=== PATIENT | female | born 1975 ===

== ENCOUNTER 2016-11-13 09:19 | Emergency (ER) | payer OTHER ==
[2016-11-13 09:25] VITALS: BMI 30.9
[2016-11-13 09:29] VITALS: O2SAT 98
[2016-11-13] MEDS ORDERED: Sodium Chloride 0.9% 500 ML IV ONE (09:58)
[2016-11-13 10:36] LABS: BASO % 0.5 % (0.0-2.0); HEMATOCRIT 41.9 % (34.0-47.0); LYMPH # 2.8 K/uL (1.0-4.3); LYMPH % 31.4 % (20.0-40.0); MEAN CELL VOLUME 89.2 fl (81.0-99.0); MEAN CORPUSCULAR HEMOGLOBIN 29.5 pg (27.0-31.0); MEAN CORPUSCULAR HGB CONC 33.1 g/dL (33.0-37.0); MEAN PLATELET VOLUME 8.8 fl (7.2-11.7); MONO # 0.4 K/uL (0.0-0.8); MONO % 4.2 % (0.0-10.0); NEUT # 4.8 K/uL (1.8-7.0); NEUT % 52.9 % (50.0-75.0); RED CELL DISTRIBUTION WIDTH 13.7 % (11.5-14.5)
--- NOTE | 2016-11-13 10:36 | ED PDOC ---
HPI: Abdomen Time Seen by Provider: 11/13/16 09:41 Chief Complaint (Nursing): Abdominal Pain Chief Complaint (Provider): Abdominal Pain History Per: Patient History/Exam Limitations: no limitations Onset/Duration Of Symptoms: Hrs (since waking up) Current Symptoms Are (Timing): Still Present Additional Complaint(s): 41 y/o F who states she woke up with epigastric pain and nausea, and vomited once. She describes the epigastric pain as burning. Denies any radiation of pain , chest pain, shortness of breath, dysuria vaginal bleeding or discharge, diarrhea, or constipation. PMD: None Past Medical History Reviewed: Historical Data, Nursing Documentation, Vital Signs Vital Signs: Last Vital Signs Temp 97.6 F 11/13/16 13:44 Pulse 78 11/13/16 13:44 Resp 19 11/13/16 13:44 BP 126/78 11/13/16 13:44 Pulse Ox 98 11/13/16 13:44 - Medical History PMH: No Chronic Diseases - Surgical History Surgical History: No Surg Hx - Family History Family History: States: Unknown Family Hx - Social History Current smoker - smoking cessation education provided: No Alcohol: None Drugs: Denies - Allergies Allergies/Adverse Reactions: Allergies Allergy/AdvReac Type Severity Reaction Status Date / Time No Known Allergies Allergy Verified 11/13/16 09:57 Review of Systems ROS Statement: Except As Marked, All Systems Reviewed And Found Negative Constitutional: Negative for: Fever, Chills Cardiovascular: Negative for: Chest Pain Respiratory: Negative for: Shortness of Breath Gastrointestinal: Positive for: Nausea, Vomiting, Abdominal Pain. Negative for : Diarrhea, Constipation Genitourinary Female: Negative for: Dysuria, Vaginal Discharge, Vaginal Bleeding Physical Exam - Reviewed Nursing Documentation Reviewed: Yes Vital Signs Reviewed: Yes - Physical Exam Appears: Positive for: Well, Non-toxic, No Acute Distress Head Exam: Positive for: ATRAUMATIC, NORMAL INSPECTION, NORMOCEPHALIC Skin: Positive for: Normal Color, Warm, Dry Eye Exam: Positive for: EOMI, Normal appearance, PERRL Neck: Positive for: Normal, Painless ROM, Supple Cardiovascular/Chest: Positive for: Regular Rate, Rhythm. Negative for: Murmur Respiratory: Positive for: Normal Breath Sounds. Negative for: Accessory Muscle Use, Respiratory Distress Gastrointestinal/Abdominal: Positive for: Soft, Tenderness (epigastric and RUQ tenderness on palpation) Back: Positive for: Normal Inspection Extremity: Positive for: Normal ROM. Negative for: Calf Tenderness, Deformity Neurologic/Psych: Positive for: Alert, Oriented. Negative for: Motor/Sensory Deficits - Laboratory Results Result Diagrams: 11/13/16 10:11 11/13/16 10:11 - ECG O2 Sat by Pulse Oximetry: 98 (RA) Pulse Ox Interpretation: Normal Medical Decision Making Medical Decision Making: Time: 9:58 Initial Plan: --Ordered labs --NS IV 500 mls at 500 mls/hr --Zofran 4 mg IV --Pepcid 20 mg IV --Toradol 30 mg IV --Pending US Abdomen Time: 13:16 CT Abdomen/Pelvis: FINDINGS: LIVER: Measures 15.8 cm. Diffusely increased echogenicity of the liver parenchyma. Consistent with fatty infiltration. Smooth contour. No mass. No biliary ductal dilatation. GALLBLADDER: Mildly thickened wall up to 4 mm, diffusely. This is a nonspecific finding. No evidence of cholelithiasis. No pericholecystic fluid. Negative sonographic Moncada sign. COMMON BILE DUCT: Measures 3 mm. No stones. No dilatation. PANCREAS: Unremarkable as visualized. No mass. No ductal dilatation. RIGHT KIDNEY: Measures 11.8cm. Normal echogenicity. No calculus, mass, or hydronephrosis. LEFT KIDNEY: Measures 12.9cm. Normal echogenicity. No calculus, mass, or hydronephrosis. SPLEEN: Normal in size and contour. No mass. AORTA: No aneurysmal dilatation. IVC: Unremarkable. OTHER FINDINGS: None. IMPRESSION: Fatty infiltration of the liver. Mild nonspecific diffuse thickening of the gallbladder wall without evidence of cholelithiasis. Scribe Attestation: Documented by Setphanie Valladares, acting as a scribe for Neelam Lezama MD Provider Scribe Attestation: All medical record entries made by the Scribe were at my direction and personally dictated by me. I have reviewed the chart and agree that the record accurately reflects my personal performance of the history, physical exam, medical decision making, and the department course for this patient. I have also personally directed, reviewed, and agree with the discharge instructions and disposition. Used video production assistant to explain results of U/S. Patient is aware of the need for follow-up. She denies dysuria. She denies abdominal pain and is tolerating po. Her abdomen is soft NT/ND. Disposition - Clinical Impression Clinical Impression: Abdominal pain - Disposition Disposition: Routine/Home Disposition Time: 13:38 Condition: GOOD Additional Instructions: Follow-up with PMD within 2 days. Return to ED if condition worsens. Instructions: Acute Abdominal Pain (ED), Non-Alcoholic Fatty Liver Disease (ED) Forms: [facility] [employer] (Latvian) Print Language: ITALIAN
[2016-11-13 10:40] LABS: RBC URINE 5 /hpf (0-3); URINE BACTERIA RARE (<OCC); URINE BILIRUBIN NEGATIVE (NEGATIVE); URINE BLOOD SMALL (NEGATIVE); URINE COLOR AMBER (YELLOW); URINE GLUCOSE (UA) NEG (Normal); URINE KETONE TRACE mg/dL (NEGATIVE); URINE LEUKOCYTE ESTERASE SMALL Leu/uL (Negative); URINE PROTEIN 30 mg/dL (NEGATIVE); URINE UROBILINOGEN 0.2-1.0 mg/dL (0.2-1.0); WBC URINE 4 /hpf (0-5)
[2016-11-13 10:46] LABS: ALB/GLOB RATIO 1.3 (1.0-2.1); ALKALINE PHOSPHATASE 86 U/L (38-126); ALT/SGPT 96 U/L (9-52); AST/SGOT 73 U/L (14-36); BILIRUBIN,TOTAL 0.6 mg/dl (0.2-1.3); BLOOD UREA NITROGEN 19 mg/dl (7-17); CALCIUM 8.7 mg/dL (8.4-10.2); CARBON DIOXIDE 24 mmol/L (22-30); CHLORIDE 105 mmol/L (98-107); GFR AFRICAN-AMERICAN > 60; GLUCOSE,RANDOM 137 mg/dL (65-105); LIPASE 58 U/L (23-300); PHOSPHOROUS 3.1 mg/dl (2.5-4.5); POTASSIUM 3.6 MMOL/L (3.6-5.0); SODIUM 139 mmol/l (132-148); TOTAL PROTEIN 7.5 G/DL (6.3-8.2)
--- NOTE | 2016-11-13 13:18 | US ---
HISTORY: RUQ pain COMPARISON: None. TECHNIQUE: Sonographic evaluation of the abdomen. FINDINGS: LIVER: Measures 15.8 cm. Diffusely increased echogenicity of the liver parenchyma. Consistent with fatty infiltration. Smooth contour. No mass. No biliary ductal dilatation. GALLBLADDER: Mildly thickened wall up to 4 mm, diffusely. This is a nonspecific finding. No evidence of cholelithiasis. No pericholecystic fluid. Negative sonographic Moncada sign. COMMON BILE DUCT: Measures 3 mm. No stones. No dilatation. PANCREAS: Unremarkable as visualized. No mass. No ductal dilatation. RIGHT KIDNEY: Measures 11.8cm. Normal echogenicity. No calculus, mass, or hydronephrosis. LEFT KIDNEY: Measures 12.9cm. Normal echogenicity. No calculus, mass, or hydronephrosis. SPLEEN: Normal in size and contour. No mass. AORTA: No aneurysmal dilatation. IVC: Unremarkable. OTHER FINDINGS: None. IMPRESSION: Fatty infiltration of the liver. Mild nonspecific diffuse thickening of the gallbladder wall without evidence of cholelithiasis.
[2016-11-13 13:46] VITALS: BP 126/78; PULSE 78; RESP 19; TEMP 97.6
== END 2016-11-13 13:46 | disposition home or self-care (01) ==
LOC: H.ER 09:19
DX: R10.13 Epigastric pain (principal); K76.0 Fatty (change of) liver, not elsewhere classified
CPT/HCPCS: 76700; 80053; 81003; 81025; 83690; 83735; 84100; 85025; 96374; 96375; 99282; J1885; J2405; J7040

== ENCOUNTER 2017-05-14 16:47 | Emergency (ER) | payer OTHER ==
[2017-05-14 16:47] VITALS: BMI 30.9
[2017-05-14 17:04] VITALS: BP 101/63; PULSE 64; RESP 16; TEMP 98.5; O2SAT 100
[2017-05-14] MEDS ORDERED: Naproxen 500 MG TAB PO STA (18:17)
[2017-05-14] MEDS ORDERED: Naproxen 500 MG TAB PO ONE (18:23)
--- NOTE | 2017-05-14 18:50 | ED PDOC ---
HPI: Headache Time Seen by Provider: 05/14/17 17:12 Chief Complaint (Nursing): Headache Chief Complaint (Provider): Headache History Per: Patient History/Exam Limitations: no limitations Onset/Duration Of Symptoms: Days Current Symptoms Are (Timing): Still Present Additional Complaint(s): 41yo female, with history of anxiety, presents to the ED with complaints of a headache and difficulty sleeping. She states she has been fighting with her daughter and recently with her as well. She states she has had similar episodes of difficulty sleeping in the past. She has not taken any medication for her symptom and is requesting something for the headache as well as the anxiety. ). Otherwise: (-) thunderclap headache, (-) worse headache of life, (-) nausea, (-) vomiting, (-) photophobia, (-) phonophobia, (-) URI symptoms, (-) fever, (-) trauma, (-) subjective neurologic symptoms, (-) hallucinations, (-) suicidal ideation, (-) homicidal ideation. Past Medical History Reviewed: Historical Data, Nursing Documentation, Vital Signs Vital Signs: Last Vital Signs Temp 98.5 F 05/14/17 16:59 Pulse 64 05/14/17 16:59 Resp 16 05/14/17 16:59 BP 101/63 05/14/17 16:59 Pulse Ox 100 05/14/17 16:59 - Medical History PMH: Anxiety - Surgical History Surgical History: No Surg Hx - Family History Family History: States: Unknown Family Hx - Home Medications Home Medications: Ambulatory Orders Medication Instructions Recorded ALPRAZolam [Xanax] 0.25 mg PO TID PRN #9 tab 05/14/17 Metoclopramide HCl [Reglan] 10 mg PO QID PRN #20 tablet 05/14/17 Naproxen 500 mg PO BID PRN #20 tablet 05/14/17 - Allergies Allergies/Adverse Reactions: Allergies Allergy/AdvReac Type Severity Reaction Status Date / Time No Known Allergies Allergy Verified 05/14/17 16:59 Review of Systems ROS Statement: Except As Marked, All Systems Reviewed And Found Negative Constitutional: Negative for: Fever, Chills Eyes: Negative for: Vision Change Gastrointestinal: Negative for: Vomiting Neurological: Positive for: Headache Psych: Negative for: Suicidal ideation, Other (homicidal ideation) Physical Exam - Reviewed Nursing Documentation Reviewed: Yes Vital Signs Reviewed: Yes - Physical Exam Comments: SKIN: Warm, dry; (-) cyanosis. HEAD: (-) scalp swelling, (-) scalp tenderness. EYES: (-) conjunctival pallor, (-) scleral icterus, (-) nystagmus. ENMT: Mucous membranes moist. Airway patent: (-) stridor. NECK: (-) tenderness, (-) stiffness, (-) lymphadenopathy. CHEST AND RESPIRATORY: (-) rales, (-) rhonchi, (-) wheezes; breath sounds equal. ABDOMEN: Soft, (-) distention, (-) tenderness, (-) guarding. NEURO AND PSYCH: Mental status as above. Affect: Normal. Memory: Intact. date night caregiver: Pupils equal and reactive; EOMI; (-) facial asymmetry; tongue and uvula midline. Strength and DTRs symmetric. - ECG O2 Sat by Pulse Oximetry: 100 (RA) Pulse Ox Interpretation: Normal Medical Decision Making Medical Decision Making: Impression: Headache, anxiety Plan: -- Reglan 10 mg PO -- Naproxen 500 mg PO On re-evaluation, patient reports significant improvement of her headache. On exam, patient remains AAOx3, in no acute distress, repeat neuro exam shows no acute focal findings. Patient encouraged to follow up with PMD and clinic for further evaluation of symptoms. Informed to take Xanax as needed for her anxiety. Return to the emergency room at any time for any new or worsening symptoms. Patient states she fully agrees with and understands discharge instructions. States that she agrees with the plan and disposition. Verbalized and repeated discharge instructions and plan. I have given the patient opportunity to ask any additional questions. Scribe Attestation: Documented by Abiola Becerra acting as a scribe for Mariaelena Castellon PA-C. Provider Attestation: All medical record entries made by the Scribe were at my direction and personally dictated by me. I have reviewed the chart and agree that the record accurately reflects my personal performance of the history, physical exam, medical decision making, and the department course for this patient. I have also personally directed, reviewed, and agree with the discharge instructions and disposition. Disposition - Clinical Impression Clinical Impression: Headache, Anxiety - Patient ED Disposition Is Patient to be Admitted: No Counseled Patient/Family Regarding: Diagnosis, Need For Followup, Rx Given - Disposition Referrals: [facility] [Outside] Disposition: Routine/Home Disposition Time: 18:20 Condition: IMPROVED Additional Instructions: Thank you for letting us take care of you today. You were treated for headache, anxiety. The emergency medical care you received today was directed at your acute symptoms. If you were prescribed any medication, please fill it and take as directed. It may take several days for your symptoms to resolve. Return to the Emergency Department if your symptoms worsen, do not improve, or if you have any other problems. Please contact your doctor in 2 days for re-evaluation and follow up / or call one of the physicians/clinics you have been referred to that are listed on the Patient Visit Information form that is included in your discharge packet. Bring any paperwork you were given at discharge with you along with any medications you are taking to your follow up visit. Our treatment cannot replace ongoing medical care by a primary care provider (PCP) outside of the emergency department. Thank you for allowing the [facility] team to be part of your care today. If you had an X-Ray or CT scan: A Radiologist will review the ED reading if any change in treatment is needed we will contact you. Prescriptions: ALPRAZolam [Xanax] 0.25 mg PO TID PRN #9 tab PRN Reason: Anxiety Metoclopramide HCl [Reglan] 10 mg PO QID PRN #20 tablet PRN Reason: Headache Naproxen 500 mg PO BID PRN #20 tablet PRN Reason: Pain, Moderate (4-7) Instructions: Headache, Adult, Anxiety, Adult (DC) Forms: [employer] (French), [facility] ED School/Work Excuse Print Language: BELARUSIAN - PA / [employer]SEM[employer]ER / Resident Statement MD/DO has reviewed & agrees with the documentation as recorded.
== END 2017-05-14 19:45 | disposition home or self-care (01) ==
LOC: H.ER 16:47
DX: R51 Headache (principal); F41.9 Anxiety disorder, unspecified

== ENCOUNTER 2017-12-07 09:06 | Emergency (ER) | payer SELFPAY ==
[2017-12-07 09:07] VITALS: BMI 30.9
[2017-12-07 09:13] VITALS: RESP 16
[2017-12-07 10:37] LABS: BASO % 0.2 % (0.0-2.0); EOS # 0.2 K/uL (0.0-0.7); EOS % 1.4 % (0.0-4.0); HEMOGLOBIN 12.5 g/dL (12.0-16.0); LYMPH # 1.3 K/uL (1.0-4.3); LYMPH % 9.9 % (20.0-40.0); MEAN CELL VOLUME 88.9 fl (81.0-99.0); MEAN CORPUSCULAR HEMOGLOBIN 29.4 pg (27.0-31.0); MEAN CORPUSCULAR HGB CONC 33.1 g/dL (33.0-37.0); MEAN PLATELET VOLUME 8.3 fl (7.2-11.7); MONO # 0.4 K/uL (0.0-0.8); MONO % 3.3 % (0.0-10.0); NEUT # 11.4 K/uL (1.8-7.0); NEUT % 85.2 % (50.0-75.0); PLATELET COUNT 220 K/uL (130-400); RBC 4.27 Mil/uL (3.80-5.20); RED CELL DISTRIBUTION WIDTH 12.8 % (11.5-14.5); WHITE BLOOD COUNT 13.4 K/uL (4.8-10.8)
[2017-12-07 10:41] LABS: SQUAMOUS EPITHIAL 13 /hpf (0-5); URINE BILIRUBIN NEGATIVE (NEGATIVE); URINE BLOOD NEGATIVE (NEGATIVE); URINE CLARITY SLIGHTY-CLOUDY (Clear); URINE COLOR YELLOW (YELLOW); URINE GLUCOSE (UA) NEG (Normal); URINE LEUKOCYTE ESTERASE NEG Leu/uL (Negative); URINE PROTEIN NEGATIVE (NEGATIVE); URINE UROBILINOGEN 0.2-1.0 mg/dL (0.2-1.0)
--- NOTE | 2017-12-07 10:54 | ED PDOC ---
HPI: Abdomen Time Seen by Provider: 12/07/17 09:39 Chief Complaint (Nursing): Abdominal Pain Chief Complaint (Provider): Abdominal Pain History Per: Patient History/Exam Limitations: no limitations Onset/Duration Of Symptoms: Days (1) Location Of Pain/Discomfort: Suprapubic Associated Symptoms: Diarrhea. denies: Fever, Nausea, Vomiting, Urinary Symptoms Additional Complaint(s): 42 years old female presents to ER for evaluation of abdominal pain associated with diarrhea onset 1 day. Patient is 9 weeks with . She denies any nausea, vomiting or fever. PMD: non provided : 4 Para: 3 Past Medical History Reviewed: Historical Data, Nursing Documentation, Vital Signs Vital Signs: Last Vital Signs Temp 98.6 F 12/07/17 09:13 Pulse 56 L 12/07/17 09:13 Resp 16 12/07/17 09:13 BP 112/71 12/07/17 09:13 Pulse Ox 100 12/07/17 09:13 - Medical History PMH: Anxiety - Surgical History Surgical History: No Surg Hx - Family History Family History: States: Unknown Family Hx - Social History Current smoker - smoking cessation education provided: No Alcohol: Social Drugs: Denies - Immunization History Hx Tetanus Toxoid Vaccination: No Hx Influenza Vaccination: No Hx Pneumococcal Vaccination: No - Home Medications Home Medications: Ambulatory Orders Medication Instructions Recorded Valacyclovir HCl [Valtrex] 1 gm PO Q8H #21 tablet 09/30/17 Acetaminophen [Tylenol 325mg tab] 2 tab PO Q4H PRN #20 tab 12/07/17 - Allergies Allergies/Adverse Reactions: Allergies Allergy/AdvReac Type Severity Reaction Status Date / Time No Known Allergies Allergy Verified 09/29/17 21:57 Review of Systems ROS Statement: Except As Marked, All Systems Reviewed And Found Negative Constitutional: Negative for: Fever Gastrointestinal: Positive for: Abdominal Pain, Diarrhea. Negative for: Nausea, Vomiting Genitourinary Female: Negative for: Dysuria, Hematuria Physical Exam - Reviewed Nursing Documentation Reviewed: Yes Vital Signs Reviewed: Yes - Physical Exam Appears: Positive for: Non-toxic, No Acute Distress Head Exam: Positive for: ATRAUMATIC, NORMOCEPHALIC Gastrointestinal/Abdominal: Positive for: Tenderness (Suprapubic). Negative for: Guarding, Rebound Extremity: Positive for: Normal ROM. Negative for: Pedal Edema, Swelling Neurologic/Psych: Positive for: Alert, Oriented (x3) - Laboratory Results Result Diagrams: 12/07/17 10:20 12/07/17 10:20 - ECG O2 Sat by Pulse Oximetry: 100 (RA) Pulse Ox Interpretation: Normal Medical Decision Making Medical Decision Making: Time: 1007 Initial Impression: Abdominal pain in . Initial Plan: --CMP --Urine dipstick --CBC --Urinalysis --OB US 1450 OB US FINDINGS: Breech presentation. Anterior placenta. No evidence of abruption or previa Gestational age derived from LMP Cannot be ascertained based in the absence of a reliable/ known LMP. Gestational age derived from the following biometric parameters 14 weeks 4 days. EMILIANO 06/03/2018 Biparietal diameter 2.60 cm Head circumference 9.94 cm Abdominal circumference 8.30 cm Femur length 1.43 cm Estimated weight 98.1 g Calculated cardiac rate 146 beats per min. Closed cervix. IMPRESSION: Fourteen weeks 4 days live intrauterine gestation. Adequate interval progression compared to the previous study. Scribe Attestation: Documented by Joan Leonard, acting as a scribe for Eva Faulkner MD. Provider Scribe Attestation: All medical record entries made by the Scribe were at my direction and personally dictated by me. I have reviewed the chart and agree that the record accurately reflects my personal performance of the history, physical exam, medical decision making, and the department course for this patient. I have also personally directed, reviewed, and agree with the discharge instructions and disposition. Disposition - Clinical Impression Clinical Impression: Abdominal pain during - Disposition Disposition: Routine/Home Disposition Time: 16:08 Condition: STABLE Additional Instructions: FOLLOW-UP WITH OB-PA[facility] SURFACING LABOURER WITHIN 2 DAYS FOR REEVALUATION. Prescriptions: Acetaminophen [Tylenol 325mg tab] 2 tab PO Q4H PRN #20 tab PRN Reason: Fever >100.4 F Instructions: Acute Abdomen (Belly Pain), Symptoms, - The Fourth Month Forms: [employer] (Estonian) Print Language: PERSIAN
[2017-12-07 11:00] LABS: ALBUMIN 3.4 g/dL (3.5-5.0); ALT/SGPT 17 U/L (9-52); AST/SGOT 19 U/L (14-36); BLOOD UREA NITROGEN 11 mg/dl (7-17); CALCIUM 8.2 mg/dL (8.4-10.2); GFR NON-AFRICAN AMERICAN > 60
[2017-12-07 11:31] LABS: BANDS 2 % (0-2); EOSINOPHIL 2 % (0-7); LYMPHOCYTE 8 % (20-50); MONOCYTE 3 % (0-10); NEUTROPHIL 85 % (42-75); TOTAL CELLS COUNTED 100
[2017-12-07 11:34] LABS: PLATELET ESTIMATE NORMAL (NORMAL)
--- NOTE | 2017-12-07 14:52 | US ---
Date of service: 12/07/2017 PROCEDURE: Limited ultrasound HISTORY: Abd pain COMPARISON: 11/23/2017 TECHNIQUE: Standard protocol for this study/examination. FINDINGS: Breech presentation. Anterior placenta. No evidence of abruption or previa Gestational age derived from LMP Cannot be ascertained based in the absence of a reliable/ known LMP. Gestational age derived from the following biometric parameters 14 weeks 4 days. EMILIANO 06/03/2018 Biparietal diameter 2.60 cm Head circumference 9.94 cm Abdominal circumference 8.30 cm Femur length 1.43 cm Estimated weight 98.1 g Calculated cardiac rate 146 beats per min. Closed cervix. IMPRESSION: Fourteen weeks 4 days live intrauterine gestation. Adequate interval progression compared to the previous study.
[2017-12-07 16:37] VITALS: BP 130/66; PULSE 74; TEMP 98.3
[2017-12-17 16:02] VITALS: O2SAT 100
== END 2017-12-07 16:30 | disposition home or self-care (01) ==
LOC: H.ER 09:06
DX: O26.91 Pregnancy related conditions, unspecified, first trimester (principal); R10.2 Pelvic and perineal pain; O32.1XX0 Maternal care for breech presentation, not applicable or unspecified; Z3A.09 9 weeks gestation of pregnancy

== ENCOUNTER 2018-05-28 19:55 | Inpatient (IN) | payer MEDICAID, SELFPAY ==
[2018-05-28 20:16] VITALS: BMI 31.3
[2018-05-28] MEDS ORDERED: OXYTOCIN/0.9 % NS 20 UNIT/1,000 ML BAG IV SCH (21:30)
[2018-05-28] MEDS ORDERED: Oxytocin 30 UNIT in NS 500 ml 30 UNITS/500 ML BAG IV ONE (21:45)
[2018-05-28 21:56] LABS: BASO % 0.6 % (0.0-2.0); EOS # 0.7 K/uL (0.0-0.7); EOS % 8.4 % (0.0-4.0); HEMOGLOBIN 9.9 g/dL (12.0-16.0); LYMPH # 2.2 K/uL (1.0-4.3); LYMPH % 25.2 % (20.0-40.0); MEAN CELL VOLUME 79.7 fl (81.0-99.0); MEAN CORPUSCULAR HEMOGLOBIN 26.5 pg (27.0-31.0); MEAN CORPUSCULAR HGB CONC 33.2 g/dL (33.0-37.0); MEAN PLATELET VOLUME 9.2 fl (7.2-11.7); MONO # 0.5 K/uL (0.0-0.8); MONO % 6.1 % (0.0-10.0); NEUT # 5.1 K/uL (1.8-7.0); NEUT % 59.7 % (50.0-75.0); RBC 3.73 Mil/uL (3.80-5.20); RED CELL DISTRIBUTION WIDTH 13.4 % (11.5-14.5); WHITE BLOOD COUNT 8.6 K/uL (4.8-10.8)
[2018-05-28 22:05] LABS: BLOOD UREA NITROGEN 13 mg/dl (7-17); CALCIUM 8.5 mg/dL (8.4-10.2); GFR NON-AFRICAN AMERICAN > 60
--- NOTE | 2018-05-29 07:06 | OBADHP ---
Datetime: 05/28/2018 21:54 Admit Comment, IP Provider: Jc: [id number] Pt is a 42 yo AMA F 39.1wks EMILIANO 06/04/18, LMP unknown, 14.4wk U/S done 12/07/17. Pt presented to [facility] due to induction of labor due to AMA and Gest DM- diet controlled. Denies contractions, vagi nal bleeding or LOF. Repors good movements. Denies fever, chills, blurry vision, headaches, SOB , chest pain, nausea, vomiting diarrhea constipation, or dysuria. All other systems reviewed and are negative unless otherwise mentioned in HPI PNP: [facility]- Dr. Beckham OBGYNhx: Gest DM- Diet controlled, no complicatons, Denies hx of STD's. Last pap 3 yrs ago report ed normal (hx of ab pap 10 yrs ago) hx of post depression and LGA baby 3 (2000,2009,1997) 2 SAB (2004, 2016) PMHx: Chronic H/A, Vitamin D def Meds: No meds- last PNV took 2 mo ago Allergies:NKDA Surg Hx: D _ C 2016 FHx: Mom and Grandma- Diabetes, Little sister congenital heart dz, Grandpa- red heart defect SocHx: Denies tobacco, EtOH or drug use Labs: ABO: B+, Antibody neg, GC/Chl neg, GBS neg, HIV neg, RPR nonreactive, Quant neg 03/29/18, TDA P 03/29/18 VS: WNL PE: Gen: NAD Heent: NCAT, EOMI Cardio: +S1S2, RRR Lungs: CTA B/L, no wheezes, rales or rhonchi Abd: soft, nontender, gravid, + BS heard throughout Ext: no edema Bimanual: 1cm/50%/-2 Bedside U/S- vertex Assessment:Pt is a 42 yo AMA F 39.1wks EMILIANO 4/5/19, LMP unknown, 14.4wk U/S done 12/07/17. P t presented to [facility] due to induction of labor due to AMA and Gest DM Plan: Admit to L _ D Monitor maternal VS WNL Monitor HR 150's, moderate variability, 15x15 accels Cytotec 25mg once, then 50mg Q4h Pitocin, BMP Regular diet Case reviewed and discussed with Dr. Zaid Hernandes PGY[facility]call. I saw and examined this pt. Agree with note ...will start Cytotec MAHNDO Extremities - PN: Normal Abdomen - PN: Normal Lungs - PN: Normal Heart - PN: Normal HEENT - PN: Normal General - PN: Normal FHR - Baseline A Provider: 150's Membranes, Provider: Intact Contraction Comments Provider: Q9-10mins Comments, ACOG Physical Exam: Gen: NAD Heent: NCAT, EOMI Cardio: +S1S2, RRR Lungs: CTA B/L, no wheezes, rales or rhonchi Abd: soft, nontender, gravid, + BS heard throughout Ext: no edema, calves nontender Bimanual: 1cm/50%/-2 FH monitoring 150's, moderate variability, 15x15 accel Bedside U/S- vertex Pool Provider: Negative IP Hx Assessment: The History has been Reviewed and is Current Vital Signs Provider: Reviewed; Within Normal Limits IP Chief Complaint: Scheduled induction of labor NICHD Variability Prov Fetus A: Moderate 6-25bpm NICHD Accel Fetus A IP Provider: 15X15 FHR Category Provider Fetus A: Category I NICHD Decel Fetus A IP Provider: None Dilatation, Provider: 1 Effacement, Provider: 50 Station, Provider: -2 IP Adm Impression: Term, intrauterine ; No Active Labor; Intact Membranes IP Admit Plan: Admit to unit; Initiate labor induction protocol
--- NOTE | 2018-05-29 08:49 | OBPN ---
Datetime: 05/29/2018 08:32 IP Progress Impression: Reassuring heart rate IP Progress Plan: Continue present management; Cervical Ripening; Anticipate Vaginal Delivery IP Progress Note Comment: Continue IOL for 39w AMA GDMA1 FHR Category Provider Fetus A: Category I Datetime: 05/28/2018 21:54 Pool Provider: Negative Membranes, Provider: Intact Contraction Comments Provider: Q9-10mins FHR - Baseline A Provider: 150's Vital Signs Provider: Reviewed; Within Normal Limits NICHD Accel Fetus A IP Provider: 15X15 NICHD Variability Prov Fetus A: Moderate 6-25bpm Dilatation, Provider: 1 Effacement, Provider: 50 Station, Provider: -2 NICHD Decel Fetus A IP Provider: None
[2018-05-29] MEDS ORDERED: Lactated Ringer's 1,000 ML IV ONE ×2 (16:53→16:54)
[2018-05-29] MEDS ORDERED: Oxytocin 30 UNIT in NS 500 ml 30 UNITS/500 ML BAG IV ONE (18:45)
--- NOTE | 2018-05-29 18:50 | OBPN ---
Datetime: 05/29/2018 18:30 IP Progress Impression: Normal progression of labor; Reassuring heart rate IP Progress Plan: Continue present management; Induction; Anticipate Vaginal Delivery Pool Provider: Negative Membranes, Provider: Intact Contraction Comments Provider: 2-5m FHR - Baseline A Provider: 130 Presentation-Admit: Vertex IP Progress Note Comment: She feels occ CTX but not enough for pain medications. She rec'd Cytotec dosing; at 4:30pm she was noted to be 3cm and CTX q 3m. SVE 3-4cm Discussoin with pt about labor, medicatoins, pain managment options, NPO, delivey and c are - will start Pitocin at 1miu/h Vital Signs Provider: Reviewed NICHD Accel Fetus A IP Provider: 15X15 FHR Category Provider Fetus A: Category I NICHD Variability Prov Fetus A: Moderate 6-25bpm Dilatation, Provider: 4 Effacement, Provider: 75 Station, Provider: -2 NICHD Decel Fetus A IP Provider: None
[2018-05-30] MEDS ORDERED: Lidocaine 1% Inj (20ml) ONE (03:07)
[2018-05-30] MEDS ORDERED: Benzocaine/Menthol SPRAY TOP PRN ×2 (04:37→05:31)
[2018-05-30] MEDS ORDERED: Oxycodone/Acetaminophen 5/325 mg Tab PO PRN ×2 (04:37→05:31)
--- NOTE | 2018-05-30 20:01 | OBDS ---
DELIVERY PERSONNEL Delivery Doctor: Elier Field MD Aco Coordinator: Melissa Ramesh RN MATERNAL INFORMATION Delivery Anesthesia: Local Medications in Delivery: Lidocaine 1% Estimated Blood Loss (ml): 200 Placenta Cultured: No Maternal Complications: None Provider Comments: Normal spontaneous vaginal delivery. Patient delivered viable with Apgars of 9 and 9 at 1 and 5 minutes respectively. Infant de livered via ZELDA position. Loose nuchal cord x1 reduced. Placenta delivered spontaneously. Lacerati ons were repaired, as above. Uterus firm and appropriately hemostatic following delivery. Patient t olerated delivery and repair well. No complications. Estimated blood loss 200 cc. LABOR SUMMARY EDC: 06/04/2018 00:00 No. Babies in Womb: 1 Attempted: No Labor Anesthesia: None LABOR INFORMATION Reason for Induction: Maternal Diabetes Reason for Induction Other: hx.GDM-diet controlled Onset of Labor: 05/29/2018 18:45 Complete Dilatation: 05/30/2018 03:10 Cervical Ripening Agents: Cytotec @ (Annotations: 50 mcg not given as ordered) Other Ripening Agents: Oxytocin: Induction Group B Beta Strep: Negative Antibiotics # of Doses: N/A Antibiotics Time of Last Dose: N/A Steroids Given: None Reason Steroids Not Administered: Not Applicable MEMBRANES Membranes Rupture Method: Spontaneous Rupture of Membranes: 05/30/2018 01:55 Length of Rupture (hrs): 1.37 Amniotic Fluid Color: Clear Amniotic Fluid Amount: Small Amniotic Fluid Odor: Normal STAGES OF LABOR Stage 1 hrs: 8 Stage 1 min: 25 Stage 2 hrs: 0 Stage 2 min: 7 Stage 3 hrs: 0 Stage 3 min: 3 Total Time in Labor hrs: 8 Total Time in Labor min: 35 VAGINAL DELIVERY Episiotomy: None Laceration Extension: First Degree Laceration Type: Periurethral Other Laceration: medial laceration Laceration Repair: Yes Laceration Repair Note: First-degree midline perineal laceration. First-degree left lateral vaginal laceration. Both areas infiltrated with 1% lidocaine. Lacerations were repaired with 2.0 repeated without complication. Patient tolerated repair as well. Initial Vag Sponge Count: 5 Final Vag Sponge Count: 5 Initial Vag Sharps Count: 2 Final Vag Sharps Count: 2 Sponge Count Correct: Yes Sharps Count Correct: Yes BABY A INFORMATION Delivery Date/Time: 05/30/2018 03:17 Method of Delivery: Vaginal Born in Route : No : N/A Forceps: N/A Vacuum Extraction: N/A Shoulder Dystocia : No SHOULDER DYSTOCIA BABY A Delivery Date/Time: 05/30/2018 03:17 PRESENTATION/POSITION BABY A Presentation: Cephalic Cephalic Presentation: Vertex Breech Presentation: N/A PLACENTA INFORMATION BABY A Placenta Delivery Time : 05/30/2018 03:20 Placenta Method of Delivery: Spontaneous Placenta Status: Delivered SCORES BABY A Heart Rate 1 min: >100 bpm Resp Effort 1 min: Good Cry Reflex Irritability 1 min: Cough or Sneeze or Pulls Away Muscle Tone 1 min: Active Motion Color 1 min: Body [place], Extremities Blue Resuscitation Effort 1 min: N/A SCORE 1 MIN: 9 Heart Rate 5 min: >100 bpm Resp Effort 5 min: Good Cry Reflex Irritability 5 min: Cough or Sneeze or Pulls Away Muscle Tone 5 min: Active Motion Color 5 min: Body [place], Extremities Blue Resuscitation Effort 5 min: N/A SCORE 5 MIN: 9 INFORMATION BABY A Gestational Age at Delivery: 39.2 Gestational Status: Term Infant Outcome : Liveborn Condition : Stable Sex: Female IDENTIFICATION/MEDS BABY A ID Band Number: [id number] ID Band Location: Left Leg; Left Arm WEIGHT/LENGTH BABY A Birthweight (gms): 3625 Weight (lb): 8 Weight (oz): 0 CORD INFORMATION BABY A No. Cord Vessels: 3 Nuchal Cord : Around Neck x1, Loose Nuchal Cord Other: N/A True Knot: N/a Infant Cord pH Baby Arterial: N/A Infant Cord pH Baby Venous: N/A Cord Blood Taken: Yes Banking/Donate Info: N/A Suction: Mouth; Nose ASSESSMENT BABY A Infant Complications: None Physical Findings at Delivery: Within Normal Limits Infant Respirations: Appears Normal [employer]/ALS Called : No Transferred To: Remains with Mother
--- NOTE | 2018-05-30 20:02 | OBDS ---
DELIVERY PERSONNEL Delivery Doctor: Elier Field MD Teletype Adjuster: Melissa Ramesh RN MATERNAL INFORMATION Delivery Anesthesia: Local Medications in Delivery: Lidocaine 1% Estimated Blood Loss (ml): 200 Placenta Cultured: No Maternal Complications: None Provider Comments: Normal spontaneous vaginal delivery. Patient delivered viable with Apgars of 9 and 9 at 1 and 5 minutes respectively. Infant de livered via ZELDA position. Loose nuchal cord x1 reduced. Placenta delivered spontaneously. Lacerati ons were repaired, as above. Uterus firm and appropriately hemostatic following delivery. Patient t olerated delivery and repair well. No complications. Estimated blood loss 200 cc. LABOR SUMMARY EDC: 06/04/2018 00:00 No. Babies in Womb: 1 Attempted: No Labor Anesthesia: None LABOR INFORMATION Reason for Induction: Maternal Diabetes Reason for Induction Other: hx.GDM-diet controlled Onset of Labor: 05/29/2018 18:45 Complete Dilatation: 05/30/2018 03:10 Cervical Ripening Agents: Cytotec @ (Annotations: 50 mcg not given as ordered) Cervical Ripening Agents: Cytotec @ (Annotations: 50 mcg. given po) Cervical Ripening Agents: Cytotec @ 50 MCG Cervical Ripening Agents: Cytotec @ 25 MCG Other Ripening Agents: Oxytocin: Induction Group B Beta Strep: Negative Antibiotics # of Doses: N/A Antibiotics Time of Last Dose: N/A Steroids Given: None Reason Steroids Not Administered: Not Applicable MEMBRANES Membranes Rupture Method: Spontaneous Rupture of Membranes: 05/30/2018 01:55 Length of Rupture (hrs): 1.37 Amniotic Fluid Color: Clear Amniotic Fluid Amount: Small Amniotic Fluid Odor: Normal STAGES OF LABOR Stage 1 hrs: 8 Stage 1 min: 25 Stage 2 hrs: 0 Stage 2 min: 7 Stage 3 hrs: 0 Stage 3 min: 3 Total Time in Labor hrs: 8 Total Time in Labor min: 35 VAGINAL DELIVERY Episiotomy: None Laceration Extension: First Degree Laceration Type: Periurethral Other Laceration: medial laceration Laceration Repair: Yes Laceration Repair Note: First-degree midline perineal laceration. First-degree left lateral vaginal laceration. Both areas infiltrated with 1% lidocaine. Lacerations were repaired with 2.0 repeated without complication. Patient tolerated repair as well. Initial Vag Sponge Count: 5 Final Vag Sponge Count: 5 Initial Vag Sharps Count: 2 Final Vag Sharps Count: 2 Sponge Count Correct: Yes Sharps Count Correct: Yes BABY A INFORMATION Delivery Date/Time: 05/30/2018 03:17 Method of Delivery: Vaginal Born in Route : No : N/A Forceps: N/A Vacuum Extraction: N/A Shoulder Dystocia : No SHOULDER DYSTOCIA BABY A Delivery Date/Time: 05/30/2018 03:17 PRESENTATION/POSITION BABY A Presentation: Cephalic Cephalic Presentation: Vertex Breech Presentation: N/A PLACENTA INFORMATION BABY A Placenta Delivery Time : 05/30/2018 03:20 Placenta Method of Delivery: Spontaneous Placenta Status: Delivered SCORES BABY A Heart Rate 1 min: >100 bpm Resp Effort 1 min: Good Cry Reflex Irritability 1 min: Cough or Sneeze or Pulls Away Muscle Tone 1 min: Active Motion Color 1 min: Body [place], Extremities Blue Resuscitation Effort 1 min: N/A SCORE 1 MIN: 9 Heart Rate 5 min: >100 bpm Resp Effort 5 min: Good Cry Reflex Irritability 5 min: Cough or Sneeze or Pulls Away Muscle Tone 5 min: Active Motion Color 5 min: Body [place], Extremities Blue Resuscitation Effort 5 min: N/A SCORE 5 MIN: 9 INFORMATION BABY A Gestational Age at Delivery: 39.2 Gestational Status: Term Outcome : Liveborn Condition : Stable Sex: Female IDENTIFICATION/MEDS BABY A ID Band Number: [id number] ID Band Location: Left Leg; Left Arm WEIGHT/LENGTH BABY A Infant Birthweight (gms): 3625 Weight (lb): 8 Infant Weight (oz): 0 CORD INFORMATION BABY A No. Cord Vessels: 3 Nuchal Cord : Around Neck x1, Loose Nuchal Cord Other: N/A True Knot: N/a Infant Cord pH Baby Arterial: N/A Infant Cord pH Baby Venous: N/A Cord Blood Taken: Yes Banking/Donate Info: N/A Suction: Mouth; Nose ASSESSMENT BABY A Complications: None Physical Findings at Delivery: Within Normal Limits Respirations: Appears Normal [employer]/ALS Called : No Transferred To: Remains with Mother
[2018-05-31 06:34] LABS: BASO % 0.4 % (0.0-2.0); EOS # 1.1 K/uL (0.0-0.7); EOS % 9.9 % (0.0-4.0); LYMPH # 3.6 K/uL (1.0-4.3); LYMPH % 32.5 % (20.0-40.0); MEAN CORPUSCULAR HEMOGLOBIN 26.1 pg (27.0-31.0); MEAN CORPUSCULAR HGB CONC 32.6 g/dL (33.0-37.0); MEAN PLATELET VOLUME 9.4 fl (7.2-11.7); MONO # 0.6 K/uL (0.0-0.8); MONO % 5.5 % (0.0-10.0); NEUT # 5.8 K/uL (1.8-7.0); NEUT % 51.7 % (50.0-75.0); RBC 3.81 Mil/uL (3.80-5.20); WHITE BLOOD COUNT 11.2 K/uL (4.8-10.8)
--- NOTE | 2018-05-31 11:35 | OBPPN ---
Datetime: 05/31/2018 08:07 PP Pain Prov: Within normal limits PP Nausea Prov: Denies PP Flatus Prov: Yes PP BM Prov: Yes PP Breasts Prov: Not Done PP Heart Prov: Normal PP Lungs Prov: Normal PP Abdomen/Uterus Prov: Normal PP Lochia Prov: Normal PP Vulva/Perineum Prov: Not Done PP CVA Tenderness Prov: Normal PP Extremities Prov: Normal PP C/S Incision Prov: Not Applicable PP Progress Prov: Normal PP Impression Prov: Normal progression PP Plan Prov: Continue present management PP Progress Note Prov: 42 yo female 39.1wk status post NVD on PPD1 Patient seen and examined at bedside in today morning. Patient report pain is controlled with meds , + for BM and Flatus, lochia = to menses. Tolerate regular diet, no N/V. and formula w /o difficulties. Patient denies SI/HI, or any sign of depression. Denies headache, dizzine ss, CP, SOB, pedal edema. VS: Stable overnight GEN: NAD Cardio: S1S2, no murmurs Lungs: clear breath sounds b/l, no wheezing Abdomen: BS+, appropriate tenderness to palpation. Uterus is firm and at the level of the umbilic us. EXT: No edema, calves nontender NEURO/PSYCH: AAOx3, no grossly focal deficits, preserved affect and mood. H/H (post ): 10.0/30.0 Assessment/Plan42 yo female 39.1wk status post NVD on PPD1. Afebrile,Pain tolerated on Reg diet. Anticipating d/c on 06/01. Continue with current management Encourage and ambulating Ibuprofen 600mg q6 and Percocet 1 tablet 5-325mg prn for pain for pain Continue Screening for post depression Dr. Patel PGY [address] Mane Patient evaluated by me this am. Agree with above note. --Dr. Granados
--- NOTE | 2018-06-01 11:25 | OBDCSUM ---
Datetime: 06/01/2018 06:11 Discharged to, Provider: Home Follow up at, Provider: Dr Beckham Disch Instr Activity: Normal activity Disch Instr Diet: Regular Discharge Instructions, Provider: Routine instructions given Discharge Diagnosis, Provider: Term Delivered Discharge Time: 06/01/2018 10:00 Follow up in weeks, Provider: 1 week, next Thursday Disch Referrals: None Contraception discussed, Prov: Yes Disch Activity Restrictions: No lifting; Minimize stair-climbing; Nothing in vagina - Granby, alberto steward Discharge Comment, Provider: 42 YO female status post NVD at [place] 39.1wk, had baby girl on 05/02 03/20. Steele: female, Wt. 3625 gm, 9/9 Post- D/C Summary: 42 YO female status post NVD at [place] 39.1wk. Intrapartum: EBL 200 m l, 1st degree laceration repaired. No complications during post- period, today on her day 2 PP D with normal progression . Lochia is less than menses. Pt able to pass flatus, has passed a bowel movement. Voiding well and able to ambulate without difficulty. Tolerating regular diet w/o N /V. Fundus firm below umbilicus level. Pt is hemodynamically stable. H/H: 10.0/30.5 Discharge Instructions given to patient: Encourage PNV 1 tab po q/day Ibuprofen 400 mg 1 tab po prn q4-6 if moderate pain. Ambulatory with caution, nothing per vagina/sex for 4 weeks, no heavy lifting, avoid stairs, if ex cessive bleeding or fever without relief from Tylenol go to ED ED precautions: If excessive bleeding, pain that does not get relief, fever >100.4, palpitations, SOB, CP or other concerning symptom go to the ED. PT was urged if feeling sad, mood swing, depression, neglect of baby, suicidal thoughts, homicidal thoughts go to ER or call 911 for help Follow-up with [facility] in 1 week for post- check. Edgar Morris MD PGY 1 Contraception after Delivery: Tubal Ligation
--- NOTE | 2018-06-01 11:25 | OBPPN ---
Datetime: 06/01/2018 05:30 PP Pain Prov: Within normal limits PP Nausea Prov: Denies PP Flatus Prov: Yes PP BM Prov: Yes PP Heart Prov: Normal PP Lungs Prov: Normal PP Comments Phys Exam Prov: see progress note PP Impression Prov: Normal progression PP Plan Prov: Continue present management; Discharge PP Progress Note Prov: 42 YO female status post NVD at [place] 39.1wk, today on her PPD2. Patient seen and examined at bedside this morning. Patient has no acute complaints, reports that the pain is controlled with pain medication. Patient is ambulating w/o difficulties. Pt is breast and bottle fee ding, she is tolerating regular diet. Lochia is like menses in volume. +Flatus, +BM. Denies fevers, c hills, dizziness, chest pain, SOB, N/V/D, hematuria or dysuria. Patient denies SI/HI, or any sign of depression. GEN: NAD Cardio: RRR, S1S2 present, no murmurs Lungs: clear breath sounds b/l, no wheezing Abdomen: BS+, appropriate tenderness to palpation, Uterus is firm below the umbilicus. EXT: No edema, calves nontender NEURO/PSYCH: AAOx3, no grossly focal deficits, preserved affect and mood. H/H (post-): 10.0/30.5 A/P 42 YO female status post NVD at [place] 39.1wk, today on her PPD2 with normal progre ssion. Encourage and ambulating Ibuprofen 600mg q6h prn pain Percocet 1 tablet 5-325mg prn for pain Continue vit DC home planning today F/u in [facility] setup with Dr Beckham next [place], patient has h/o PP depression. Case reviewed and discussed with attending Edgar Morris MD PGY1 Patient seen and evaluated by me this am. Agree with above note. Patient for discharge home today and rtc for visit. --Dr. Granados Vital Signs Provider PP: Reviewed; Within Normal Limits
[2018-06-01 18:24] VITALS: BP 108/62; PULSE 52; RESP 18; TEMP 98.3; O2SAT 100
== END 2018-06-01 11:45 | disposition home or self-care (01) | DRG 560 ==
LOC: H.EROB2 19:55 → H.L&D 21:17 → H.OB/GYN 05-30 05:39
PROVIDERS: ADMIT Obstetrics & Gynecology; ATTEND Obstetrics & Gynecology
PROC: 10E0XZZ Delivery of Products of Conception, External Approach (ICD-10-PCS; principal; 2018-05-28)
PROC: 0HQ9XZZ Repair Perineum Skin, External Approach (ICD-10-PCS; 2018-05-28)
PROC: 4A1HXCZ Monitoring of Products of Conception, Cardiac Rate, External Approach (ICD-10-PCS; 2018-05-28)
DX: O24.429 Gestational diabetes mellitus in childbirth, unspecified control (principal); O69.81X0 Labor and delivery complicated by cord around neck, without compression, not applicable or unspecified; Z37.0 Single live birth; O70.0 First degree perineal laceration during delivery; Z3A.39 39 weeks gestation of pregnancy